=== PATIENT | male | born 1985 | race Caucasian/White ===

== ENCOUNTER 2024-01-12 15:48 | Outpatient (CLI) | payer OTHER, SELFPAY | END 2024-01-12 15:49 | disposition home or self-care (01) | PROVIDERS: PCP Family Medicine; Visit Provider Family Medicine | DX: I10 Essential (primary) hypertension (principal); Z13.220 Encounter for screening for lipoid disorders; Z13.29 Encounter for screening for other suspected endocrine disorder | CPT/HCPCS: 80048; 80061; 84443 ==

== ENCOUNTER 2025-01-11 08:00 | Outpatient (CLI) | payer OTHER, SELFPAY ==
--- NOTE | 2025-01-11 08:15 | CRLHL7_ITS ---
For Patients: As a result of the Century Cures Act, medical imaging exams and procedure reports are released immediately into your electronic medical record. You may view this report before your referring provider. If you have questions, please contact your health care provider. INDICATION: Dizziness. TECHNIQUE: Non-contrast sagittal T1, axial FLAIR, FSE T2, DWI, posterior fossa CISS images provided. Supplemental post contrast T1 weighted axial and coronal high resolution images through the posterior fossa with fat saturation and post contrast whole head axial T1 weighted images submitted. No comparisons. 20 cc of Dotarem was administered intravenously. FINDINGS: The ventricles, sulci and gyri are of normal size, shape and contour for age. Midline structures are centrally located. No convincing evidence of suspicious intra- or extra-axial fluid collections. No regions of restricted diffusion. Expected flow-voids within the cavernous carotids and basilar artery. No suspicious masses within the internal auditory canals. No suspicious regions of abnormal parenchymal enhancement. IMPRESSION: 1. No radiographic evidence of acute intracranial abnormalities. Dictated by Rivera Farmer MD @ 01/11/2025 9:51:56 AM (Electronically Signed)
== END 2025-01-11 08:01 | disposition home or self-care (01) ==
LOC: MRI 08:01
PROVIDERS: PCP Family Medicine; Visit Provider Otolaryngology
DX: R42 Dizziness and giddiness (principal)
CPT/HCPCS: 70553; A9575

== ENCOUNTER 2025-02-08 09:01 | Outpatient (CLI) | payer OTHER, SELFPAY | END 2025-02-08 09:02 | disposition home or self-care (01) | PROVIDERS: PCP Family Medicine; Visit Provider Family Medicine | DX: I10 Essential (primary) hypertension (principal); M54.50 Low back pain, unspecified; Z13.9 Encounter for screening, unspecified | CPT/HCPCS: 80048; 80061; 85025 ==